=== PATIENT | male | born 1975 | race Two or more races ===

== ENCOUNTER 2017-06-22 08:16 | Day surgery (SDC) | payer OTHER ==
[2017-06-22] MEDS: BUPIVACAINE 0.25% (MPF) 30 ML INJ INJ ×2
[~2017-06-22 08:16] MED LIST: EPHEDrine SULFATE 50 MG/5 ML SYG
[2017-06-22] MEDS ORDERED: BUPIVACAINE 0.25% (MPF) 30 ML INJ ×2 (09:21→11:03)
[2017-06-22] MEDS ORDERED: CEFAZOLIN 2 GM/50 ML (PMX) 50 ML IVPB (09:30)
[2017-06-22] MEDS ORDERED: PROPOFOL 20 ML (10:01)
[2017-06-22] MEDS ORDERED: ROCURONIUM 50 MG INJ (10:02)
[2017-06-22] MEDS ORDERED: LIDOCAINE 2% (SDV) 5 ML INJ (10:02)
[2017-06-22] MEDS ORDERED: CEFAZOLIN 1 GM INJ (10:02)
[2017-06-22] MEDS ORDERED: ONDANSETRON 4 MG INJ (10:02)
[2017-06-22] MEDS ORDERED: SUGAMMADEX SODIUM 200 MG/2 ML VIAL IV (10:03)
[2017-06-22] MEDS ORDERED: KETOROLAC 30 MG INJ (10:03)
[2017-06-22] MEDS ORDERED: FENTAnyl 50 MCG/ML VIAL ×2 (10:05→11:00)
[2017-06-22] MEDS ORDERED: ACETAMINOPHEN 1000MG/100ML IV 100 ML (10:16)
[2017-06-22] MEDS ORDERED: HYDROmorphONE 2 MG/ML SYG (10:22)
[2017-06-22] MEDS ORDERED: HYDROCODONE/APAP (5/325) TAB PO ×2 (12:00)
[2017-06-22] MEDS ORDERED: ONDANSETRON 4 MG INJ IV ×2 (12:00→12:30)
[2017-06-22] MEDS ORDERED: IBUPROFEN 600 MG TAB PO (12:00)
[2017-06-22] MEDS ORDERED: MINERAL OIL LIGHT 10 ML VIAL (12:15)
[2017-06-22] MEDS ORDERED: HYDROmorphONE (0.2 MG/ML) 10ML SYG IV (12:30)
[2017-06-22] MEDS ORDERED: FENTAnyl 50 MCG/ML VIAL IV (12:30)
[2017-06-22] MEDS: LABETALOL HCL 20MG INJ IV (12:31)
== END 2017-06-22 14:30 | disposition home or self-care (01) ==
LOC: SDS 08:16
DX: K40.20 Bilateral inguinal hernia, without obstruction or gangrene, not specified as recurrent (principal); E78.5 Hyperlipidemia, unspecified; I10 Essential (primary) hypertension; Z87.891 Personal history of nicotine dependence
CPT/HCPCS: 49650